=== PATIENT | female | born 1960 | race American Indian/Alaskan Native ===

== ENCOUNTER 2017-08-21 22:24 | Observation (INO) | payer MEDICARE, OTHER ==
--- NOTE | 2017-08-22 00:18 | ED PDOC ---
Syncope/Near Syncope/Dizziness <Robinson Jeter - Last Filed: 08/22/17 00:47> Chief Complaint (Provider): Near Syncope History Per: Patient History/Exam Limitations: no limitations Onset/Duration Of Symptoms: Days (x 1) Current Symptoms Are (Timing): Still Present Additional Complaint(s): 56 year old female with a medical history of HTN, DM, high cholesterol, CAD with 6 stents and obesity, presents to the ED complaining of near syncope, with associated generalized weakness. Patient reports she underwent gastric sleeve surgery on at [place] by Dr. Milner and while she was there she retained a lot of fluid. The fluid retention caused her left leg prosthesis to not fit. Because it did not fit, she never underwent any physical therapy for walking during her hospital stay. Patient was discharged today and was brought home via car by nephew. When she was trying to walk inside, she fell twice. First time she fell because her prosthesis did not fit and secondly, she felt light headed. She denies any loss of consciousness or head injury. PMd: Dr. eKrwin Neri MD <Yue Astorga - Last Filed: 08/24/17 16:42> Time Seen by Provider: 08/21/17 22:51 Chief Complaint (Nursing): Lower Extremity Problem/Injury Past Medical History Vital Signs: Last Vital Signs Temp 98.1 F 08/21/17 22:36 Pulse 78 08/21/17 22:36 Resp 16 08/21/17 22:36 BP 143/87 08/21/17 22:36 Pulse Ox 99 08/22/17 00:47 <Robinson Jeter - Last Filed: 08/22/17 00:47> Reviewed: Historical Data, Nursing Documentation, Vital Signs Vital Signs: Last Vital Signs Temp 98.1 F 08/21/17 22:36 Pulse 78 08/21/17 22:36 Resp 16 08/21/17 22:36 BP 143/87 08/21/17 22:36 Pulse Ox 99 08/21/17 22:36 - Medical History PMH: CAD, Diabetes, HTN, Hypercholesterolemia Other PMH: Obesity, 6 stents - Surgical History Other surgeries: right toe and left knee amputations, gastric sleeve and left eye - Family History Family History: States: CAD, Diabetes, Hypertension - Social History Ex-Smoker (has not smoked in the last 12 months): Yes Alcohol: None Drugs: Denies <Yue Astorga - Last Filed: 08/24/17 16:42> - Home Medications Home Medications: Ambulatory Orders Medication Instructions Recorded Aspirin [Ecotrin] 81 mg PO DAILY 08/22/17 Atorvastatin [Lipitor] 40 mg PO DAILY 08/22/17 Metoprolol Succinate [Toprol XL] 100 mg PO BID 08/22/17 Morphine Sulfate/Naltrexone 1 cap PO DAILY 08/22/17 [Embeda ER 50-2 mg Capsule] Mv,Min10/Folic Acid/D3/Ala/Lut 1 tab PO DAILY 08/22/17 [Strovite One Caplet] oxyCODONE/Acetaminophen [Percocet 1 tab PO Q6 PRN 08/22/17 5/325 mg Tab] Valsartan [Diovan] 80 mg PO DAILY tab 08/24/17 - Allergies Allergies/Adverse Reactions: Allergies Allergy/AdvReac Type Severity Reaction Status Date / Time No Known Allergies Allergy Verified 08/21/17 22:36 Review of Systems ROS Statement: Except As Marked, All Systems Reviewed And Found Negative (as per HPI otherwise negative) Neurological: Positive for: Other (near syncope) <Yue Astorga - Last Filed: 08/24/17 16:42> Physical Exam - Reviewed Nursing Documentation Reviewed: Yes Vital Signs Reviewed: Yes - Physical Exam Appears: Positive for: Non-toxic, In Acute Distress Head Exam: Positive for: ATRAUMATIC, NORMOCEPHALIC Skin: Positive for: Warm, Dry Eye Exam: Positive for: EOMI, PERRL ENT: Negative for: Pharyngeal Erythema, Tonsillar Exudate Neck: Positive for: Painless ROM, Supple Cardiovascular/Chest: Positive for: Regular Rate, Rhythm. Negative for: Murmur Respiratory: Positive for: Normal Breath Sounds. Negative for: Wheezing Gastrointestinal/Abdominal: Positive for: Other (Multiple incisions from recent laproscopic surgery. Wounds appear clean, dry and intact. ). Negative for: Tenderness Back: Positive for: Normal Inspection. Negative for: Decreased ROM Extremity: Positive for: Other (Pitting edema in right lower extremity. Poorly fititng prosthesis in place on lower left extremity) Lymphatic: Negative for: Adenopathy Neurologic/Psych: Positive for: Alert, Oriented (x 3) <Yue Astorga - Last Filed: 08/24/17 16:42> - Laboratory Results Result Diagrams: 08/22/17 01:10 08/22/17 01:10 - ECG O2 Sat by Pulse Oximetry: 99 (RA) Pulse Ox Interpretation: Normal <Yue Astorga - Last Filed: 08/24/17 16:42> Medical Decision Making Medical Decision Making: Time: 23:33 Impression: : near syncope Differential diagnoses include but are not limited to: deconditioning secondary to recent surgery electrolyte abnormality, anemia Initial Plan: --Blood type and screen --EKG --CMP --Magnesium --phosphorus --Troponin I --urien dip --CBC with differentials --PTT --Prothrombin time --Chest x-ray Scribe Attestation: Documented by Whitney Trujillo, acting as a scribe for Yue Astorga MD. Provider Scribe Attestation: All medical record entries made by the Scribe were at my direction and personally dictated by me. I have reviewed the chart and agree that the record accurately reflects my personal performance of the history, physical exam, medical decision making, and the department course for this patient. I have also personally directed, reviewed, and agree with the discharge instructions and disposition. <Yue Astorga - Last Filed: 08/24/17 16:42> Disposition <Robinson Jeter - Last Filed: 08/22/17 00:47> - Patient ED Disposition Is Patient to be Admitted: Transfer of Care - Disposition Disposition: Transfer of Care Disposition Time: 00:00 Patient Signed Over To: Robinson Jeter <Yue Astorga - Last Filed: 08/24/17 16:42> - Clinical Impression Clinical Impression: Recurrent falls, Near syncope - Disposition Condition: FAIR
--- NOTE | 2017-08-22 00:53 | ED PDOC ---
- Laboratory Results Result Diagrams: 08/22/17 01:10 08/22/17 01:10 - ECG O2 Sat by Pulse Oximetry: 99 (RA) Pulse Ox Interpretation: Normal Medical Decision Making Medical Decision Making: Time: 00:00 --Patient endorsed to me pending labs and reevaluation Time: --Labs reveal no clinically significant abnormalities --Given patient's history of multiple recurrent falls and gait instability in light of recent surgery place on observation status --Case referred to Dr. Neri, primary care provider. Scribe Attestation: Documented by Whitney Trujillo, acting as a scribe for Robinson Jeter MD. Provider Scribe Attestation: All medical record entries made by the Scribe were at my direction and personally dictated by me. I have reviewed the chart and agree that the record accurately reflects my personal performance of the history, physical exam, medical decision making, and the department course for this patient. I have also personally directed, reviewed, and agree with the discharge instructions and disposition. Disposition - Clinical Impression Clinical Impression: Recurrent falls, Near syncope - POA Present On Arrival: Falls Or Trauma - Disposition Disposition: Hospitalized as Observation Patient Disposition Time: : Condition: FAIR Patient Signed Over To: Kerwin Neri
[2017-08-22 01:39] LABS: BASO # 0.1 K/uL (0.0-0.2); BASO % 0.6 % (0.0-2.0); EOS # 0.3 K/uL (0.0-0.7); EOS % 2.9 % (0.0-4.0); HEMOGLOBIN 11.7 g/dL (12.0-16.0); LYMPH # 1.4 K/uL (1.0-4.3); LYMPH % 13.3 % (20.0-40.0); MEAN PLATELET VOLUME 7.7 fl (7.2-11.7); MONO # 0.7 K/uL (0.0-0.8); MONO % 6.5 % (0.0-10.0); NEUT % 76.7 % (50.0-75.0); RBC 4.88 Mil/uL (3.80-5.20); RED CELL DISTRIBUTION WIDTH 18.7 % (11.5-14.5); WHITE BLOOD COUNT 10.5 K/uL (4.8-10.8)
[2017-08-22 01:49] LABS: ALB/GLOB RATIO 0.9 (1.0-2.1); ALBUMIN 3.5 g/dL (3.5-5.0); MAGNESIUM 2.2 MG/DL (1.6-2.3)
[2017-08-22 01:58] LABS: INR 1.1 (0.9-1.2); PARTIAL THROMBOPLASTIN TIME 34.9 Seconds (25.6-37.1); PROTHROMBIN TIME 11.8 Seconds (9.8-13.1)
[2017-08-22 01:59] LABS: TROPONIN I 0.018 ng/mL (0.00-0.120)
[2017-08-22] MEDS: Multivitamin With Minerals Tab PO SCH (09:21)
--- NOTE | 2017-08-22 09:23 | RAD ---
HISTORY: near syncope COMPARISON: 08/07/2013 FINDINGS: LUNGS: No dense consolidation. Lung volumes are shallow central pulmonary vasculature is accentuated - likely in part due to this as well as large body habitus. Overall appearance is similar PLEURA: No significant pleural effusion identified, no pneumothorax apparent. CARDIOVASCULAR: Cardiomegaly as beforeLung volumes are shallow central pulmonary vasculature is accentuated - likely in part due to this as well as large body habitus. Overall appearance is similar OSSEOUS STRUCTURES: Bilateral shoulder arthrosis. Thoracic spondylosis VISUALIZED UPPER ABDOMEN: Normal. OTHER FINDINGS: None. IMPRESSION: No interval pathology noted
--- NOTE | 2017-08-22 11:18 | CP.PCM.HP ---
History of Present Illness - History of Present Illness History of Present Illness: 56 y/o F with PMHx of HTN, DM, HLP, CAD, AKA R/LE, stents and obesity, presented to ED Yesterday c/o falls, with associated generalized weakness. Patient reports she underwent gastric bypass Sx last at [place] and while she was there she retained a lot of fluid because she states she was aggressively hydrated. The fluid retention caused her left leg prosthesis to not fit well and because of this, she was not able to receive any PT for walking during her hospital stay. At home, When she was trying to walk inside, she fell twice. First time she fell because her prosthesis did not fit and secondly, she felt light headed. She denies any loss of consciousness or head injury. Today patient is in not acute distress, still c/o B/L LE swelling and some pain as well. Denies CP, SOB, palpitations. Present on Admission - Present on Admission Any Indicators Present on Admission: No Review of Systems - Review of Systems All systems: reviewed and no additional remarkable complaints except Review of Systems: As per HPI Past Patient History - Past Medical History & Family History Past Medical History?: Yes - Past Social History Smoking Status: Former Smoker - CARDIAC Hx Cardiac Disorders: Yes Hx Hypercholesterolemia: Yes Hx Hypertension: Yes - PULMONARY Hx Respiratory Disorders: No - NEUROLOGICAL Hx Neurological Disorder: No - HEENT Hx HEENT Problems: No - RENAL Hx Chronic Kidney Disease: No - ENDOCRINE/METABOLIC Hx Endocrine Disorders: Yes Hx Diabetes Mellitus Type 2: Yes - HEMATOLOGICAL/ONCOLOGICAL Hx Blood Disorders: No - INTEGUMENTARY Hx Dermatological Problems: No - MUSCULOSKELETAL/RHEUMATOLOGICAL Hx Musculoskeletal Disorders: No Hx Falls: Yes - GASTROINTESTINAL Hx Gastrointestinal Disorders: No - GENITOURINARY/GYNECOLOGICAL Hx Genitourinary Disorders: No - PSYCHIATRIC Hx Psychophysiologic Disorder: No Hx Substance Use: No - SURGICAL HISTORY Hx Surgeries: Yes Hx Amputation: Yes (left bka & right big toe) Hx Cardiac Catheterization: Yes (6 stents) Other/Comment: left BKA 2013. gastric sleeve - ANESTHESIA Hx Anesthesia: Yes Hx Anesthesia Reactions: No Meds Allergies/Adverse Reactions: Allergies Allergy/AdvReac Type Severity Reaction Status Date / Time No Known Allergies Allergy Verified 08/21/17 22:36 Physical Exam - Constitutional Appears: Non-toxic, Chronically Ill Additional comments: Obese - Eye Exam Eye Exam: EOMI, PERRL - ENT Exam ENT Exam: Mucous Membranes Moist - Respiratory Exam Respiratory Exam: Clear to Auscultation Bilateral, NORMAL BREATHING PATTERN. absent: Rales - Cardiovascular Exam Cardiovascular Exam: REGULAR RHYTHM, +S1, +S2. absent: Gallop - GI/Abdominal Exam GI & Abdominal Exam: Normal Bowel Sounds, Soft, Tenderness (Diffuse, worse around Sx incision areas). absent: Guarding, Rebound - Extremities Exam Extremities exam: Positive for: pedal edema Additional comments: AKA L/LE. - Neurological Exam Neurological exam: Alert, Oriented x3 - Psychiatric Exam Psychiatric exam: Normal Affect, Normal Mood - Skin Skin Exam: Normal Color, Warm Results - Vital Signs Recent Vital Signs: Last Vital Signs Temp 97.6 F 08/22/17 08:00 Pulse 67 08/22/17 09:00 Resp 20 08/22/17 08:00 BP 163/79 H 08/22/17 08:00 Pulse Ox 98 08/22/17 08:00 - Labs Result Diagrams: 08/22/17 01:10 08/22/17 01:10 Labs: Laboratory Results - last 24 hr 08/22/17 08/22/17 08/22/17 00:02 01:10 01:10 WBC 10.5 RBC 4.88 Hgb 11.7 L Hct 36.6 MCV 75.0 L MCH 24.0 L MCHC 32.0 L RDW 18.7 H Plt Count 362 MPV 7.7 Neut % (Auto) 76.7 H Lymph % (Auto) 13.3 L Glynn % (Auto) 6.5 Eos % (Auto) 2.9 Baso % (Auto) 0.6 Neut # (Auto) 8.0 H Lymph # (Auto) 1.4 Glynn # (Auto) 0.7 Eos # (Auto) 0.3 Baso # (Auto) 0.1 PT INR APTT Sodium 141 Potassium 4.1 Chloride 107 Carbon Dioxide 22 Anion Gap 16 BUN 16 Creatinine 1.2 Est GFR ( Amer) 57 Est GFR (Non-Af Amer) 47 POC Glucose (mg/dL) 111 H Random Glucose 123 H Calcium 9.0 Phosphorus 2.5 Magnesium 2.2 Total Bilirubin 0.5 AST 29 ALT 26 Alkaline Phosphatase 66 Troponin I 0.0180 Total Protein 7.2 Albumin 3.5 Globulin 3.7 Albumin/Globulin Ratio 0.9 L Blood Type Antibody Screen BBK History Checked 08/22/17 08/22/17 08/22/17 01:10 01:10 05:24 WBC RBC Hgb Hct MCV MCH MCHC RDW Plt Count MPV Neut % (Auto) Lymph % (Auto) Glynn % (Auto) Eos % (Auto) Baso % (Auto) Neut # (Auto) Lymph # (Auto) Glynn # (Auto) Eos # (Auto) Baso # (Auto) PT 11.8 INR 1.1 APTT 34.9 Sodium Potassium Chloride Carbon Dioxide Anion Gap BUN Creatinine Est GFR ( Amer) Est GFR (Non-Af Amer) POC Glucose (mg/dL) 120 H Random Glucose Calcium Phosphorus Magnesium Total Bilirubin AST ALT Alkaline Phosphatase Troponin I Total Protein Albumin Globulin Albumin/Globulin Ratio Blood Type AB POSITIVE Antibody Screen Negative BBK History Checked Patient has bt Assessment & Plan - Assessment and Plan (Free Text) Assessment: Fall Likely mechanical due to prosthetic/swelling of LE CMP WNL CBC mild anemia EKG no acute changes B/L LE swelling R/O DVT Poss due to fluid overload F/U LE US DVT prophylaxis S/P Gastric bypass Sx [facility] referral PT/OT eval Transfer to Med-Sx Hx of CAD Asymptomatic C/W Current meds Anemia Unspecified IRon studies VIT B12/Folate
--- NOTE | 2017-08-22 11:40 | CARD ---
APPROVED REPORT EKG Measurement Heart [id number] <Conclusion> Normal sinus rhythm Cannot rule out Anterior infarct, age undetermined Abnormal ECG
[2017-08-22] MEDS: Metoprolol Succinate 100 mg XL Tab PO SCH ×2 (14:08→16:00)
--- NOTE | 2017-08-22 14:38 | US ---
PROCEDURE: Bilateral lower extremity venous duplex Doppler. HISTORY: leg edema COMPARISON: None available. TECHNIQUE: Bilateral common femoral, superficial femoral, popliteal and posterior tibial veins were evaluated. Flow was assessed with color Doppler, compressibility, assessment of phasic flow and augmentation response. FINDINGS: COMMON FEMORAL VEIN: Right CFV: Unremarkable. Left CFV: Unremarkable. SUPERFICIAL FEMORAL VEIN: Right SFV: Unremarkable. Left SFV: Unremarkable. POPLITEAL VEIN: Right Popliteal: Unremarkable. Left Popliteal: Unremarkable. POSTERIOR TIBIAL VEIN: Right PTV: Unremarkable. Left PTV: Status post below knee amputation OTHER FINDINGS: None. IMPRESSION: No evidence of deep venous thrombosis.
[2017-08-22 21:05] LABS: FOLATE > 20.0 ng/mL
[2017-08-23] MEDS: Multivitamin With Minerals Tab PO SCH (08:46)
[2017-08-23] MEDS: Metoprolol Succinate 100 mg XL Tab PO SCH ×2 (08:46→17:23)
[2017-08-23] MEDS: Enoxaparin 40 mg Syringe SC SCH (08:46)
[2017-08-23] MEDS: Oxycodone/Acetaminophen 5/325 mg Tab PO PRN ×2 (08:53→14:11)
--- NOTE | 2017-08-23 13:43 | CP.PCM.PN ---
Subjective - Date & Time of Evaluation Date of Evaluation: 08/23/17 Time of Evaluation: 10:45 - Subjective Subjective: Doing better, no acute events overnight. Stable. Lying in bed in not acute distress. Denies CP, SOB, palpitations. Afebrile Objective - Vital Signs/Intake and Output Vital Signs (last 24 hours): Temp Pulse Resp BP Pulse Ox 98.4 F 73 18 148/79 99 08/23/17 09:00 08/23/17 09:00 08/23/17 09:00 08/23/17 09:00 08/23/17 09:00 - Medications Medications: Current Medications Aspirin (Ecotrin) 81 mg PO DAILY [facility] Last Admin: 08/23/17 08:46 Dose: 81 mg Atorvastatin Calcium (Lipitor) 40 mg PO DAILY [facility] Last Admin: 08/23/17 08:46 Dose: 40 mg Enoxaparin Sodium (Lovenox) 40 mg SC DAILY [facility] PRN Reason: Protocol Last Admin: 08/23/17 08:46 Dose: 40 mg Metoprolol Succinate (Toprol Xl) 100 mg PO BID [facility] Last Admin: 08/23/17 08:46 Dose: 100 mg Morphine Sulfate (Morphine) 2 mg IVP Q6 PRN PRN Reason: Pain, moderate (4-7) Last Admin: 08/23/17 11:36 Dose: 2 mg Multivitamins/Minerals (Therapeutic-M Tab) 1 tab PO DAILY [facility] Last Admin: 08/23/17 08:46 Dose: 1 tab Oxycodone/Acetaminophen (Percocet 5/325 Mg Tab) 1 tab PO Q6 PRN PRN Reason: Pain, moderate (4-7) Stop: 08/25/17 06:44 Last Admin: 08/23/17 08:53 Dose: 1 tab Valsartan (Diovan) 80 mg PO DAILY [facility] Last Admin: 08/23/17 08:46 Dose: 80 mg - Labs Labs: 08/22/17 01:10 08/22/17 01:10 PT 11.8 Seconds (9.8-13.1) 08/22/17 01:10 INR 1.1 (0.9-1.2) 08/22/17 01:10 APTT 34.9 Seconds (25.6-37.1) 08/22/17 01:10 - Constitutional Appears: Non-toxic, No Acute Distress - Head Exam Head Exam: NORMAL INSPECTION - Eye Exam Eye Exam: EOMI, PERRL - ENT Exam ENT Exam: Mucous Membranes Moist - Respiratory Exam Respiratory Exam: Clear to Ausculation Bilateral, NORMAL BREATHING PATTERN. absent: Rales - Cardiovascular Exam Cardiovascular Exam: REGULAR RHYTHM, +S1, +S2. absent: Gallop - GI/Abdominal Exam GI & Abdominal Exam: Soft, Tenderness (MIld). absent: Guarding, Rigid, Rebound - Extremities Exam Extremities Exam: Pedal Edema. absent: Calf Tenderness, Normal Inspection ( Left leg amputations status) - Neurological Exam Neurological Exam: Alert, Awake, Oriented x3 - Psychiatric Exam Psychiatric exam: Normal Affect, Normal Mood - Skin Skin Exam: Normal Color, Warm Assessment and Plan - Assessment and Plan (Free Text) Plan: Unsteady gait likely due to leg swelling after fluid overload Improving LE US no DVT Pain improved PT eval
[2017-08-24 08:14] VITALS: BP 131/74; PULSE 75; RESP 19; TEMP 98.1
[2017-08-24] MEDS: Enoxaparin 40 mg Syringe SC SCH (08:46)
[2017-08-24] MEDS: Metoprolol Succinate 100 mg XL Tab PO SCH (08:46)
[2017-08-24] MEDS: Multivitamin With Minerals Tab PO SCH (08:46)
--- NOTE | 2017-08-24 12:31 | CP.PCM.DIS ---
Provider - Provider Date of Admission: 08/22/17 02:31 Attending physician: Kerwin Neri MD Time Spent in preparation of Discharge (in minutes): 30 Diagnosis - Discharge Diagnosis (1) Unsteady gait Status: Acute Comment: Likely due to acute LE edema due to fluid overload. (2) Status post gastric bypass for obesity Status: Acute Comment: Stable (3) Amputation status of lower extremity Status: Chronic Comment: Needs PT. Hospital Course - Lab Results Lab Results: Most Recent Lab Values WBC 10.5 K/uL (4.8-10.8) 08/22/17 01:10 RBC 4.88 Mil/uL (3.80-5.20) 08/22/17 01:10 Hgb 11.7 g/dL (12.0-16.0) L 08/22/17 01:10 Hct 36.6 % (34.0-47.0) 08/22/17 01:10 MCV 75.0 fl (81.0-99.0) L 08/22/17 01:10 MCH 24.0 pg (27.0-31.0) L 08/22/17 01:10 MCHC 32.0 g/dL (33.0-37.0) L 08/22/17 01:10 RDW 18.7 % (11.5-14.5) H 08/22/17 01:10 Plt Count 362 K/uL (130-400) 08/22/17 01:10 MPV 7.7 fl (7.2-11.7) 08/22/17 01:10 Neut % (Auto) 76.7 % (50.0-75.0) H 08/22/17 01:10 Lymph % (Auto) 13.3 % (20.0-40.0) L 08/22/17 01:10 Traill % (Auto) 6.5 % (0.0-10.0) 08/22/17 01:10 Eos % (Auto) 2.9 % (0.0-4.0) 08/22/17 01:10 Baso % (Auto) 0.6 % (0.0-2.0) 08/22/17 01:10 Neut # (Auto) 8.0 K/uL (1.8-7.0) H 08/22/17 01:10 Lymph # (Auto) 1.4 K/uL (1.0-4.3) 08/22/17 01:10 Traill # (Auto) 0.7 K/uL (0.0-0.8) 08/22/17 01:10 Eos # (Auto) 0.3 K/uL (0.0-0.7) 08/22/17 01:10 Baso # (Auto) 0.1 K/uL (0.0-0.2) 08/22/17 01:10 PT 11.8 Seconds (9.8-13.1) 08/22/17 01:10 INR 1.1 (0.9-1.2) 08/22/17 01:10 APTT 34.9 Seconds (25.6-37.1) 08/22/17 01:10 Sodium 141 mmol/l (132-148) 08/22/17 01:10 Potassium 4.1 MMOL/L (3.6-5.0) 08/22/17 01:10 Chloride 107 mmol/L (98-107) 08/22/17 01:10 Carbon Dioxide 22 mmol/L (22-30) 08/22/17 01:10 Anion Gap 16 (10-20) 08/22/17 01:10 BUN 16 mg/dl (7-17) 08/22/17 01:10 Creatinine 1.2 mg/dl (0.7-1.2) 08/22/17 01:10 Est GFR ( Amer) 57 08/22/17 01:10 Est GFR (Non-Af Amer) 47 08/22/17 01:10 POC Glucose (mg/dL) 175 mg/dL (65-110) H 08/24/17 10:34 Random Glucose 123 mg/dL (65-105) H 08/22/17 01:10 Calcium 9.0 mg/dL (8.4-10.2) 08/22/17 01:10 Phosphorus 2.5 mg/dl (2.5-4.5) 08/22/17 01:10 Magnesium 2.2 MG/DL (1.6-2.3) 08/22/17 01:10 Ferritin 173.0 ng/Ml (11.1-264.0) 08/22/17 14:47 Total Bilirubin 0.5 mg/dl (0.2-1.3) 08/22/17 01:10 AST 29 U/L (14-36) 08/22/17 01:10 ALT 26 U/L (9-52) 08/22/17 01:10 Alkaline Phosphatase 66 U/L (38-126) 08/22/17 01:10 Troponin I 0.0180 ng/mL (0.00-0.120) 08/22/17 01:10 Total Protein 7.2 G/DL (6.3-8.2) 08/22/17 01:10 Albumin 3.5 g/dL (3.5-5.0) 08/22/17 01:10 Globulin 3.7 gm/dL (2.2-3.9) 08/22/17 01:10 Albumin/Globulin Ratio 0.9 (1.0-2.1) L 08/22/17 01:10 Vitamin B12 992 pg/mL (239-931) H 08/22/17 14:47 Folate > 20.0 ng/mL 08/22/17 14:47 Blood Type AB POSITIVE 08/22/17 01:10 Antibody Screen Negative 08/22/17 01:10 BBK History Checked Patient has bt 08/22/17 01:10 - Hospital Course Hospital Course: 56 y/o F with PMhx of obesity, AARON was admitted to hosp for unsteadiness/falls due to LE edema and prosthesis malfunctioning after DC from [facility] s/p gastric bypass. Patient remained stable during hosp stay. LE US ruled out DVT and LE edema improved. Patient is cleared to be transferred to TCU unit today for physical therapy Discharge Exam - Head Exam Head Exam: NORMAL INSPECTION - Eye Exam Eye Exam: EOMI, PERRL - ENT Exam ENT Exam: Mucous Membranes Moist - Respiratory Exam Respiratory Exam: Clear to PA & Lateral, NORMAL BREATHING PATTERN, UNREMARKABLE. absent: Wheezes - Cardiovascular Exam Cardiovascular Exam: REGULAR RHYTHM, +S1, +S2. absent: Gallop - GI/Abdominal Exam GI & Abdominal Exam: Normal Bowel Sounds, Soft, Tenderness (Mild, periumbilical/ epigastric). absent: Distended, Rigid - Extremities Exam Additional comments: Amputation status L/leg - Neurological Exam Neurological exam: Alert, Oriented x3 - Psychiatric Exam Psychiatric exam: Normal Affect, Normal Mood - Skin Skin Exam: Normal Color, Warm Discharge Plan - Follow Up Plan Condition: STABLE Disposition: REHAB FACILITY/REHAB UNIT Instructions: Preventing Falls, Near Fainting (DC) Referrals: Kerwin Neri MD [Family Provider] -
[2017-08-24 16:42] VITALS: O2SAT 99
[2017-08-25] MEDS ORDERED: Pantoprazole 40 mg EC Tab PO SCH (09:00)
== END 2017-08-24 16:05 ==
LOC: H.ER 22:24 → H.ERHOLD 08-22 02:31 → H.TEL 08-22 04:57 → H.MEDSURG1 08-23 00:18
PROVIDERS: ADMIT Family Medicine; ATTEND Family Medicine
DX: R26.81 Unsteadiness on feet (principal); E66.9 Obesity, unspecified; Z68.42 Body mass index [BMI] 45.0-49.9, adult; I10 Essential (primary) hypertension; E11.9 Type 2 diabetes mellitus without complications; E78.00 Pure hypercholesterolemia, unspecified; I25.10 Atherosclerotic heart disease of native coronary artery without angina pectoris; Z98.84 Bariatric surgery status; Z95.5 Presence of coronary angioplasty implant and graft; Z87.891 Personal history of nicotine dependence; E78.5 Hyperlipidemia, unspecified; D64.9 Anemia, unspecified; Z89.512 Acquired absence of left leg below knee; R29.6 Repeated falls
CPT/HCPCS: 71045; 80053; 82607; 82728; 82746; 82948; 83735; 84100; 84484; 85025; 85610; 85730; 86850; 86900; 93005; 93970; 97116; 97162; 97166; 97530; 99284; G0378; G8978; G8979; G8987; G8988; J1650; J1885; J2270; J2405

== ENCOUNTER 2017-08-24 15:23 | Inpatient (IN) | payer MEDICARE, OTHER ==
[2017-08-24 16:23] VITALS: BMI 54.1
[2017-08-24] MEDS ORDERED: Simethicone 40 mg/0.6 ml Liquid (30 ml) PO PRN (16:33)
[2017-08-24] MEDS: Oxycodone/Acetaminophen 5/325 mg Tab PO PRN (19:36)
[2017-08-24] MEDS: Metoprolol Succinate 100 mg XL Tab PO SCH (20:22)
[2017-08-25] MEDS: Metoprolol Succinate 100 mg XL Tab PO SCH ×2 (08:29→16:14)
[2017-08-25] MEDS: Oxycodone/Acetaminophen 5/325 mg Tab PO PRN (08:39)
[2017-08-25] MEDS ORDERED: Multivitamin With Minerals Tab PO SCH (09:00)
[2017-08-25] MEDS ORDERED: NALTREXONE PO SCH (09:00)
[2017-08-25] MEDS ORDERED: MORPHINE SULFATE PO SCH (09:00)
[2017-08-25 16:43] VITALS: RESP 20
[2017-08-26] MEDS: Oxycodone/Acetaminophen 5/325 mg Tab PO PRN ×2 (02:58→22:06)
[2017-08-26] MEDS: Metoprolol Succinate 100 mg XL Tab PO SCH ×2 (08:51→17:19)
[2017-08-26] MEDS: [UNRECOGNIZED DRUG - OTHER] PO SCH (08:51)
--- NOTE | 2017-08-27 00:16 | CP.PCM.HP ---
History of Present Illness - History of Present Illness History of Present Illness: This is a 56 y/o female admitted for further phys therapy. She was admitted to medical floor after having episodes of fall after a sleeve procedure .Her prosthesis was not well fitted and had difficulty with gait and balance. She also complained of vague epigastric pain on and off since after the gastric procedure. Has a hx of HTN DM 2 and obesity. Present on Admission - Present on Admission Any Indicators Present on Admission: No History of DVT/PE: No History of Uncontrolled Diabetes: No Urinary Catheter: No Decubitus Ulcer Present: No Review of Systems - Constitutional Constitutional: Frequent Falls, Increased Appetite, Weight Gain Past Patient History - Past Medical History & Family History Past Medical History?: Yes - Past Social History Smoking Status: Never Smoked - CARDIAC Hx Hypertension: Yes - PULMONARY Hx Respiratory Disorders: No - NEUROLOGICAL Hx Neurological Disorder: No - HEENT Hx HEENT Problems: No - RENAL Hx Chronic Kidney Disease: No - ENDOCRINE/METABOLIC Hx Diabetes Mellitus Type 2: Yes - HEMATOLOGICAL/ONCOLOGICAL Hx Blood Disorders: No - INTEGUMENTARY Hx Dermatological Problems: No - MUSCULOSKELETAL/RHEUMATOLOGICAL Hx Musculoskeletal Disorders: No Hx Falls: Yes - GASTROINTESTINAL Hx Gastrointestinal Disorders: No - GENITOURINARY/GYNECOLOGICAL Hx Genitourinary Disorders: No - PSYCHIATRIC Hx Psychophysiologic Disorder: No Hx Substance Use: No - SURGICAL HISTORY Hx Surgeries: Yes Hx Amputation: Yes (left bka & right big toe) Hx Cardiac Catheterization: Yes (6 stents) Other/Comment: left BKA 2013. gastric sleeve - ANESTHESIA Hx Anesthesia: Yes Hx Anesthesia Reactions: No Meds Allergies/Adverse Reactions: Allergies Allergy/AdvReac Type Severity Reaction Status Date / Time No Known Allergies Allergy Verified 08/21/17 22:36 Physical Exam - Head Exam Head Exam: NORMAL INSPECTION - Eye Exam Eye Exam: Normal appearance - ENT Exam ENT Exam: Mucous Membranes Moist - Respiratory Exam Respiratory Exam: Clear to Auscultation Bilateral - Cardiovascular Exam Cardiovascular Exam: REGULAR RHYTHM - GI/Abdominal Exam GI & Abdominal Exam: Normal Bowel Sounds Additional comments: slight oozing on the surgical wound. - Neurological Exam Neurological exam: CN II-XII Intact, Oriented x3 Results - Vital Signs Recent Vital Signs: Last Vital Signs Temp 97.0 F L 08/26/17 21:32 Pulse 58 L 08/26/17 21:32 Resp 20 08/26/17 21:32 BP 165/76 H 08/26/17 21:32 Pulse Ox 97 08/26/17 21:32 - Labs Labs: Laboratory Results - last 24 hr 08/26/17 08/26/17 08/26/17 05:33 16:14 20:57 POC Glucose (mg/dL) 79 127 H 123 H Assessment & Plan (1) Recurrent falls Status: Acute (2) Gait difficulty Status: Acute (3) Morbid obesity Status: Acute (4) Diabetes mellitus type 2 in obese Status: Acute - Assessment and Plan (Free Text) Plan: start PT cont accucheck advised clear liquids for now. Cont meds
[2017-08-27] MEDS: Metoprolol Succinate 100 mg XL Tab PO SCH ×2 (08:24→17:34)
[2017-08-27] MEDS: [UNRECOGNIZED DRUG - OTHER] PO SCH (08:24)
[2017-08-27] MEDS: Oxycodone/Acetaminophen 5/325 mg Tab PO PRN (17:53)
--- NOTE | 2017-08-28 07:24 | CP.PCM.PN ---
Subjective - Date & Time of Evaluation Date of Evaluation: 08/27/17 Time of Evaluation: 10:45 - Subjective Subjective: Patient is doing well with PT Noted slight bleeding on surgical wound Has less abd pain tolerating PT well. Noted that prosthesis is now fully fitted. Objective - Vital Signs/Intake and Output Vital Signs (last 24 hours): Temp Pulse Resp BP Pulse Ox 97.9 F 61 20 140/75 98 08/27/17 20:07 08/27/17 20:07 08/27/17 20:07 08/27/17 20:07 08/27/17 20:07 - Medications Medications: Current Medications Aspirin (Ecotrin) 81 mg PO DAILY [facility] Last Admin: 08/27/17 08:24 Dose: 81 mg Atorvastatin Calcium (Lipitor) 40 mg PO DAILY [facility] Last Admin: 08/27/17 08:24 Dose: 40 mg Docusate Sodium (Colace) 100 mg PO BID [facility] Last Admin: 08/27/17 17:34 Dose: 100 mg Home Med (Patient's Own Medication) 1 unit PO DAILY [facility] Last Admin: 08/27/17 08:24 Dose: 1 unit Metoprolol Succinate (Toprol Xl) 100 mg PO BID [facility] Last Admin: 08/27/17 17:34 Dose: 100 mg Ondansetron HCl (Zofran Inj) 4 mg IVP Q4 PRN PRN Reason: Nausea/Vomiting Last Admin: 08/25/17 17:41 Dose: 4 mg Ondansetron HCl (Zofran Tab) 4 mg PO Q4 PRN PRN Reason: Nausea/Vomiting Oxycodone/Acetaminophen (Percocet 5/325 Mg Tab) 1 tab PO Q6 PRN PRN Reason: Pain, moderate (4-7) Stop: 08/30/17 17:34 Last Admin: 08/27/17 17:53 Dose: 1 tab Pregabalin (Lyrica) 100 mg PO Q12 [facility] Last Admin: 08/27/17 20:56 Dose: 100 mg Simethicone (Mylicon Liq) 40 mg PO QID PRN PRN Reason: Flatulence Ticagrelor (Brilinta) 90 mg PO BID [facility] Last Admin: 08/27/17 17:35 Dose: 90 mg Valsartan (Diovan) 80 mg PO DAILY [facility] Last Admin: 03/05/18 08:24 Dose: 80 mg - Head Exam Head Exam: NORMAL INSPECTION - Eye Exam Eye Exam: Normal appearance - Respiratory Exam Respiratory Exam: Clear to Ausculation Bilateral - Cardiovascular Exam Cardiovascular Exam: REGULAR RHYTHM - GI/Abdominal Exam GI & Abdominal Exam: Normal Bowel Sounds Additional comments: slight oozing on surgical wound - Neurological Exam Neurological Exam: CN II-XII Intact, Oriented x3 Assessment and Plan (1) Gait difficulty Status: Acute (2) Diabetes mellitus type 2 in obese Status: Acute (3) Morbid obesity Status: Acute (4) Near syncope Status: Acute (5) Status post gastric bypass for obesity Status: Acute (6) Unsteady gait Status: Acute (7) Amputation status of lower extremity Status: Chronic - Assessment and Plan (Free Text) Plan: Cont meds Cont tx Cont PT pain memds protonix wound dressing
[2017-08-28] MEDS: Metoprolol Succinate 100 mg XL Tab PO SCH ×2 (09:25→16:37)
[2017-08-28] MEDS: [UNRECOGNIZED DRUG - OTHER] PO SCH (09:26)
[2017-08-28] MEDS: Oxycodone/Acetaminophen 5/325 mg Tab PO PRN ×2 (12:39→22:41)
--- NOTE | 2017-08-28 12:52 | CP.PCM.PN ---
<Edmund Yi - Last Filed: 08/28/17 12:50> Subjective - Date & Time of Evaluation Date of Evaluation: 08/28/17 Time of Evaluation: 10:20 - Subjective Subjective: Stable, no acute distress, no event overnight. Feeling better. Afebrile. Objective - Vital Signs/Intake and Output Vital Signs (last 24 hours): Temp Pulse Resp BP Pulse Ox 98.2 F 69 20 130/56 L 98 08/28/17 08:57 08/28/17 09:25 08/28/17 08:57 08/28/17 09:25 08/28/17 08:57 - Medications Medications: Current Medications Acetaminophen (Tylenol 325mg Tab) 650 mg PO Q6 PRN PRN Reason: Pain, Mild (1-3) Aspirin (Ecotrin) 81 mg PO DAILY [facility] Last Admin: 08/28/17 09:25 Dose: 81 mg Atorvastatin Calcium (Lipitor) 40 mg PO DAILY [facility] Last Admin: 08/28/17 09:25 Dose: 40 mg Docusate Sodium (Colace) 100 mg PO BID [facility] Last Admin: 08/28/17 09:25 Dose: Not Given Home Med (Patient's Own Medication) 1 unit PO DAILY [facility] Last Admin: 08/28/17 09:26 Dose: 1 unit Metoprolol Succinate (Toprol Xl) 100 mg PO BID [facility] Last Admin: 08/28/17 09:25 Dose: 100 mg Ondansetron HCl (Zofran Inj) 4 mg IVP Q4 PRN PRN Reason: Nausea/Vomiting Last Admin: 08/25/17 17:41 Dose: 4 mg Ondansetron HCl (Zofran Tab) 4 mg PO Q4 PRN PRN Reason: Nausea/Vomiting Oxycodone/Acetaminophen (Percocet 5/325 Mg Tab) 1 tab PO Q6 PRN PRN Reason: Pain, moderate (4-7) Stop: 08/30/17 17:34 Last Admin: 08/28/17 12:39 Dose: 1 tab Pregabalin (Lyrica) 100 mg PO Q12 [facility] Last Admin: 08/28/17 09:25 Dose: 100 mg Simethicone (Mylicon Liq) 40 mg PO QID PRN PRN Reason: Flatulence Ticagrelor (Brilinta) 90 mg PO BID [facility] Last Admin: 08/28/17 09:26 Dose: 90 mg Valsartan (Diovan) 80 mg PO DAILY [facility] Last Admin: 08/28/17 09:25 Dose: 80 mg - Constitutional Appears: Non-toxic, No Acute Distress - Eye Exam Eye Exam: EOMI, PERRL - ENT Exam ENT Exam: Mucous Membranes Moist - Respiratory Exam Respiratory Exam: Clear to Ausculation Bilateral, NORMAL BREATHING PATTERN - Cardiovascular Exam Cardiovascular Exam: REGULAR RHYTHM, +S1, +S2. absent: Gallop - GI/Abdominal Exam GI & Abdominal Exam: Soft, Normal Bowel Sounds. absent: Tenderness - Extremities Exam Extremities Exam: absent: Normal Inspection (amputation status. No acute changes ) - Neurological Exam Neurological Exam: Alert, Awake, Oriented x3 - Psychiatric Exam Psychiatric exam: Normal Affect, Normal Mood - Skin Skin Exam: Normal Color, Warm Assessment and Plan - Assessment and Plan (Free Text) Assessment: S/p gastric bypass and fluid overload Admitted for unsteadiness likely due to LE edema/mechanical prostetic difficulty walking No DVT C/W PT <Kerwin Neri - Last Filed: 09/04/17 05:55> Objective - Vital Signs/Intake and Output Vital Signs (last 24 hours): Temp Pulse Resp BP Pulse Ox 97.5 F L 68 20 111/52 L 98 09/02/17 08:23 09/02/17 08:25 09/02/17 08:23 09/02/17 08:25 09/02/17 08:23 Assessment and Plan (1) Unsteady gait Status: Acute (2) Diabetes mellitus type 2 in obese Status: Acute (3) Gait difficulty Status: Acute (4) Morbid obesity Status: Acute (5) Recurrent falls Status: Acute (6) Status post gastric bypass for obesity Status: Acute - Assessment and Plan (Free Text) Plan: I was present during evaluation and discussed with Dr Kd gonsalves plans of care and treatment. Kerwin Neri M.D.
[2017-08-29] MEDS: Oxycodone/Acetaminophen 5/325 mg Tab PO PRN ×3 (04:50→23:22)
[2017-08-29] MEDS: [UNRECOGNIZED DRUG - OTHER] PO SCH (09:07)
[2017-08-29] MEDS: Metoprolol Succinate 100 mg XL Tab PO SCH ×2 (09:07→17:04)
--- NOTE | 2017-08-29 10:48 | CP.PCM.PN ---
<Edmund Yi - Last Filed: 08/29/17 13:17> Subjective - Date & Time of Evaluation Date of Evaluation: 08/29/17 Time of Evaluation: 11:45 - Subjective Subjective: No acute distress, no event overnight, gait improved with PT as per patient not 100 % yet. No changes in urination or stools. Tolerating PO liquid diet. Still c /o mild abd pain near Sx incision areas from recent gastric bp sx Objective - Vital Signs/Intake and Output Vital Signs (last 24 hours): Temp Pulse Resp BP Pulse Ox 98.1 F 82 20 137/63 99 08/29/17 08:27 08/29/17 09:07 08/29/17 08:27 08/29/17 09:07 08/29/17 08:27 - Medications Medications: Current Medications Acetaminophen (Tylenol 325mg Tab) 650 mg PO Q6 PRN PRN Reason: Pain, Mild (1-3) Aspirin (Ecotrin) 81 mg PO DAILY [facility] Last Admin: 08/29/17 09:07 Dose: 81 mg Atorvastatin Calcium (Lipitor) 40 mg PO DAILY@2100 [facility] Docusate Sodium (Colace) 100 mg PO BID [facility] Last Admin: 08/29/17 08:49 Dose: Not Given Home Med (Patient's Own Medication) 1 unit PO DAILY [facility] Last Admin: 08/29/17 09:07 Dose: 1 unit Metoprolol Succinate (Toprol Xl) 100 mg PO BID [facility] Last Admin: 08/29/17 09:07 Dose: 100 mg Ondansetron HCl (Zofran Inj) 4 mg IVP Q4 PRN PRN Reason: Nausea/Vomiting Last Admin: 08/25/17 17:41 Dose: 4 mg Ondansetron HCl (Zofran Tab) 4 mg PO Q4 PRN PRN Reason: Nausea/Vomiting Last Admin: 08/28/17 16:37 Dose: 4 mg Oxycodone/Acetaminophen (Percocet 5/325 Mg Tab) 1 tab PO Q6 PRN PRN Reason: Pain, moderate (4-7) Stop: 08/30/17 17:34 Last Admin: 08/29/17 04:50 Dose: 1 tab Pregabalin (Lyrica) 100 mg PO Q12 [facility] Last Admin: 08/29/17 09:06 Dose: 100 mg Simethicone (Mylicon Liq) 40 mg PO QID PRN PRN Reason: Flatulence Ticagrelor (Brilinta) 90 mg PO BID [facility] Last Admin: 08/29/17 09:07 Dose: 90 mg Valsartan (Diovan) 80 mg PO DAILY [facility] Last Admin: 08/29/17 09:07 Dose: 80 mg - Constitutional Appears: Non-toxic, No Acute Distress - Eye Exam Eye Exam: EOMI, PERRL - ENT Exam ENT Exam: Mucous Membranes Moist - Respiratory Exam Respiratory Exam: Clear to Ausculation Bilateral, NORMAL BREATHING PATTERN. absent: Decreased Breath Sounds, Rales, Respiratory Distress - Cardiovascular Exam Cardiovascular Exam: REGULAR RHYTHM, +S1, +S2. absent: Gallop - GI/Abdominal Exam GI & Abdominal Exam: Soft, Normal Bowel Sounds. absent: Guarding, Rebound - Extremities Exam Extremities Exam: absent: Calf Tenderness, Pedal Edema Additional comments: Amputation status - Neurological Exam Neurological Exam: Alert, Awake, Oriented x3 - Psychiatric Exam Psychiatric exam: Normal Affect, Normal Mood - Skin Skin Exam: Normal Color, Warm Assessment and Plan - Assessment and Plan (Free Text) Assessment: Unsteady gait amputations status s/p Gastric bypass Sx C/W PT Pain control DC plan C/W liquid diet until tomorrow(2 weeks post op) <Kerwin Neri - Last Filed: 09/04/17 05:56> Objective - Vital Signs/Intake and Output Vital Signs (last 24 hours): Temp Pulse Resp BP Pulse Ox 97.5 F L 68 20 111/52 L 98 09/02/17 08:23 09/02/17 08:25 09/02/17 08:23 09/02/17 08:25 09/02/17 08:23 Assessment and Plan (1) Unsteady gait Status: Acute (2) Diabetes mellitus type 2 in obese Status: Acute (3) Gait difficulty Status: Acute (4) Morbid obesity Status: Acute (5) Recurrent falls Status: Acute (6) Status post gastric bypass for obesity Status: Acute - Assessment and Plan (Free Text) Plan: I was present during evaluation and discussed with Dr Kd gonsalves plans of care and treatment. Kerwin Neri M.D.
[2017-08-30] MEDS: [UNRECOGNIZED DRUG - OTHER] PO SCH (08:25)
[2017-08-30] MEDS: Metoprolol Succinate 100 mg XL Tab PO SCH ×2 (08:26→16:35)
[2017-08-30] MEDS: Oxycodone/Acetaminophen 5/325 mg Tab PO PRN ×2 (10:47→21:38)
--- NOTE | 2017-08-30 12:43 | CP.PCM.PN ---
<Edmund Yi - Last Filed: 08/30/17 12:41> Subjective - Date & Time of Evaluation Date of Evaluation: 08/30/17 Time of Evaluation: 10:45 - Subjective Subjective: Stable. Seem on PT sessions doing better. Has no new complains. Denies LE pain, CP, SOB. No acute events overnight. Objective - Vital Signs/Intake and Output Vital Signs (last 24 hours): Temp Pulse Resp BP Pulse Ox 97.3 F L 67 20 142/65 99 08/30/17 08:11 08/30/17 08:26 08/30/17 08:11 08/30/17 08:26 08/30/17 08:11 - Medications Medications: Current Medications Acetaminophen (Tylenol 325mg Tab) 650 mg PO Q6 PRN PRN Reason: Pain, Mild (1-3) Aspirin (Ecotrin) 81 mg PO DAILY [facility] Last Admin: 08/30/17 08:25 Dose: 81 mg Atorvastatin Calcium (Lipitor) 40 mg PO DAILY@2100 [facility] Last Admin: 08/29/17 20:54 Dose: 40 mg Docusate Sodium (Colace) 100 mg PO BID [facility] Last Admin: 08/30/17 08:25 Dose: Not Given Home Med (Patient's Own Medication) 1 unit PO DAILY [facility] Last Admin: 08/30/17 08:25 Dose: 1 unit Metoprolol Succinate (Toprol Xl) 100 mg PO BID [facility] Last Admin: 08/30/17 08:26 Dose: 100 mg Ondansetron HCl (Zofran Inj) 4 mg IVP Q4 PRN PRN Reason: Nausea/Vomiting Last Admin: 08/25/17 17:41 Dose: 4 mg Ondansetron HCl (Zofran Tab) 4 mg PO Q4 PRN PRN Reason: Nausea/Vomiting Last Admin: 08/28/17 16:37 Dose: 4 mg Oxycodone/Acetaminophen (Percocet 5/325 Mg Tab) 1 tab PO Q6 PRN PRN Reason: Pain, moderate (4-7) Stop: 08/30/17 17:34 Last Admin: 08/30/17 10:47 Dose: 1 tab Pregabalin (Lyrica) 100 mg PO Q12 [facility] Last Admin: 08/30/17 08:25 Dose: 100 mg Simethicone (Mylicon Liq) 40 mg PO QID PRN PRN Reason: Flatulence Ticagrelor (Brilinta) 90 mg PO BID [facility] Last Admin: 08/30/17 08:25 Dose: 90 mg Valsartan (Diovan) 80 mg PO DAILY [facility] Last Admin: 08/30/17 08:26 Dose: 80 mg - Constitutional Appears: Non-toxic, No Acute Distress - Eye Exam Eye Exam: EOMI, PERRL - ENT Exam ENT Exam: Mucous Membranes Moist - Respiratory Exam Respiratory Exam: Clear to Ausculation Bilateral, NORMAL BREATHING PATTERN. absent: Decreased Breath Sounds, Prolonged Expiratory Phase, Respiratory Distress - Cardiovascular Exam Cardiovascular Exam: REGULAR RHYTHM, +S1, +S2. absent: Gallop - GI/Abdominal Exam GI & Abdominal Exam: Soft, Normal Bowel Sounds. absent: Tenderness - Extremities Exam Extremities Exam: absent: Normal Inspection (BKA L/leg) - Neurological Exam Neurological Exam: Alert, Awake, Oriented x3 Assessment and Plan - Assessment and Plan (Free Text) Assessment: C/W PT C/W Current plan Start soft diet today(2 weeks post op) Will order Arterial doppler of R/LE Anticipated DC this weekend <Kerwin Neri - Last Filed: 09/04/17 05:57> Objective - Vital Signs/Intake and Output Vital Signs (last 24 hours): Temp Pulse Resp BP Pulse Ox 97.5 F L 68 20 111/52 L 98 09/02/17 08:23 09/02/17 08:25 09/02/17 08:23 09/02/17 08:25 09/02/17 08:23 Assessment and Plan (1) Unsteady gait Status: Acute (2) Diabetes mellitus type 2 in obese Status: Acute (3) Gait difficulty Status: Acute (4) Morbid obesity Status: Acute (5) Recurrent falls Status: Acute (6) Status post gastric bypass for obesity Status: Acute - Assessment and Plan (Free Text) Plan: I was present during evaluation and discussed with Dr Kd gonsalves plans of care and treatment. Kerwin Neri M.D.
[2017-08-31] MEDS: Metoprolol Succinate 100 mg XL Tab PO SCH ×2 (08:17→16:47)
[2017-08-31] MEDS: [UNRECOGNIZED DRUG - OTHER] PO SCH (09:00)
--- NOTE | 2017-08-31 11:02 | CP.PCM.PN ---
<Edmund Yi - Last Filed: 08/31/17 12:41> Subjective - Date & Time of Evaluation Date of Evaluation: 08/31/17 Time of Evaluation: 10:40 - Subjective Subjective: Stable. Seem on PT sessions doing better. Has no new complains. Denies LE pain, CP, SOB. No acute events overnight. C/o worsening R/shoulder pain. Denies recent falls in the hosp tingling or numbness in R/UE Objective - Vital Signs/Intake and Output Vital Signs (last 24 hours): Temp Pulse Resp BP Pulse Ox 97.3 F L 64 20 116/52 L 97 08/31/17 08:33 08/31/17 08:33 08/31/17 08:33 08/31/17 08:33 08/31/17 08:33 - Medications Medications: Current Medications Acetaminophen (Tylenol 325mg Tab) 650 mg PO Q6 PRN PRN Reason: Pain, Mild (1-3) Aspirin (Ecotrin) 81 mg PO DAILY [facility] Last Admin: 08/31/17 08:14 Dose: 81 mg Atorvastatin Calcium (Lipitor) 40 mg PO DAILY@2100 [facility] Last Admin: 08/30/17 21:18 Dose: 40 mg Docusate Sodium (Colace) 100 mg PO BID [facility] Last Admin: 08/31/17 08:13 Dose: Not Given Home Med (Patient's Own Medication) 1 unit PO DAILY [facility] Last Admin: 08/30/17 08:25 Dose: 1 unit Metoprolol Succinate (Toprol Xl) 100 mg PO BID [facility] Last Admin: 08/31/17 08:17 Dose: Not Given Ondansetron HCl (Zofran Inj) 4 mg IVP Q4 PRN PRN Reason: Nausea/Vomiting Last Admin: 08/25/17 17:41 Dose: 4 mg Ondansetron HCl (Zofran Tab) 4 mg PO Q4 PRN PRN Reason: Nausea/Vomiting Last Admin: 08/31/17 07:58 Dose: 4 mg Oxycodone/Acetaminophen (Percocet 5/325 Mg Tab) 1 tab PO Q6 PRN PRN Reason: Pain, severe (8-10) Stop: 09/02/17 21:22 Last Admin: 08/30/17 21:38 Dose: 1 tab Pregabalin (Lyrica) 100 mg PO Q12 [facility] Last Admin: 08/31/17 08:16 Dose: 100 mg Simethicone (Mylicon Liq) 40 mg PO QID PRN PRN Reason: Flatulence Ticagrelor (Brilinta) 90 mg PO BID [facility] Last Admin: 08/31/17 08:13 Dose: 90 mg Valsartan (Diovan) 80 mg PO DAILY [facility] Last Admin: 08/31/17 08:16 Dose: Not Given - Constitutional Appears: Non-toxic, No Acute Distress - Eye Exam Eye Exam: EOMI, PERRL - ENT Exam ENT Exam: Mucous Membranes Moist - Respiratory Exam Respiratory Exam: Clear to Ausculation Bilateral, NORMAL BREATHING PATTERN. absent: Rales - Cardiovascular Exam Cardiovascular Exam: REGULAR RHYTHM, +S1, +S2. absent: Gallop - GI/Abdominal Exam GI & Abdominal Exam: Soft, Tenderness (Mild, diffuse), Normal Bowel Sounds - Extremities Exam Extremities Exam: absent: Calf Tenderness, Normal Inspection (BKA) - Neurological Exam Neurological Exam: Alert, Awake, Oriented x3 - Psychiatric Exam Psychiatric exam: Normal Affect, Normal Mood - Skin Skin Exam: Normal Color, Warm Assessment and Plan - Assessment and Plan (Free Text) Assessment: Unsteady gait improved Doing well on pT c/o new onset R/shoulder pain. Poss due to PT exercises? will start Motrin q8h Duplex arterial of LE done Yesterday, pending report Anticipated DC 09/02/17 <Kerwin Neri - Last Filed: 09/04/17 05:58> Objective - Vital Signs/Intake and Output Vital Signs (last 24 hours): Temp Pulse Resp BP Pulse Ox 97.5 F L 68 20 111/52 L 98 09/02/17 08:23 09/02/17 08:25 09/02/17 08:23 09/02/17 08:25 09/02/17 08:23 Assessment and Plan (1) Unsteady gait Status: Acute (2) Diabetes mellitus type 2 in obese Status: Acute (3) Gait difficulty Status: Acute (4) Morbid obesity Status: Acute (5) Recurrent falls Status: Acute (6) Status post gastric bypass for obesity Status: Acute - Assessment and Plan (Free Text) Plan: I was present during evaluation and discussed with Dr Yi re plans of care and treatment. Kerwin Neri M.D.
[2017-08-31] MEDS: Pantoprazole 40 mg EC Tab PO SCH (12:36)
[2017-08-31] MEDS: Oxycodone/Acetaminophen 5/325 mg Tab PO PRN (21:35)
[2017-09-01] MEDS: [UNRECOGNIZED DRUG - OTHER] PO SCH (08:56)
[2017-09-01] MEDS: Metoprolol Succinate 100 mg XL Tab PO SCH ×2 (08:57→16:43)
[2017-09-01] MEDS: Pantoprazole 40 mg EC Tab PO SCH (08:57)
[2017-09-01 20:03] VITALS: PULSE 68
[2017-09-01] MEDS: Oxycodone/Acetaminophen 5/325 mg Tab PO PRN (22:52)
[2017-09-02 08:24] VITALS: TEMP 97.5; O2SAT 98
[2017-09-02] MEDS: Metoprolol Succinate 100 mg XL Tab PO SCH (08:25)
[2017-09-02] MEDS: [UNRECOGNIZED DRUG - OTHER] PO SCH (08:25)
[2017-09-02] MEDS: Pantoprazole 40 mg EC Tab PO SCH (08:25)
[2017-09-02 08:29] VITALS: BP 111/52
--- NOTE | 2017-09-02 22:55 | CP.PCM.PN ---
Subjective - Date & Time of Evaluation Date of Evaluation: 09/01/17 Time of Evaluation: 10:30 - Subjective Subjective: Patient continues to do well Still with slight ooze on wound site Doing well with PT Has less abd pain. Objective - Vital Signs/Intake and Output Vital Signs (last 24 hours): Temp Pulse Resp BP Pulse Ox 97.5 F L 68 20 111/52 L 98 09/02/17 08:23 09/02/17 08:25 09/02/17 08:23 09/02/17 08:25 09/02/17 08:23 - Head Exam Head Exam: NORMAL INSPECTION - Eye Exam Eye Exam: Normal appearance - Respiratory Exam Respiratory Exam: NORMAL BREATHING PATTERN - Cardiovascular Exam Cardiovascular Exam: REGULAR RHYTHM - GI/Abdominal Exam GI & Abdominal Exam: Normal Bowel Sounds - Neurological Exam Neurological Exam: CN II-XII Intact, Oriented x3 - Psychiatric Exam Psychiatric exam: Normal Mood Assessment and Plan (1) Unsteady gait Status: Acute (2) Diabetes mellitus type 2 in obese Status: Acute (3) Gait difficulty Status: Acute (4) Morbid obesity Status: Acute (5) Recurrent falls Status: Acute (6) Status post gastric bypass for obesity Status: Acute - Assessment and Plan (Free Text) Plan: Cont meds Cont tx Cont PT pain meds wound care
--- NOTE | 2017-09-02 23:10 | CP.PCM.DIS ---
Provider - Provider Date of Admission: 08/24/17 16:23 Attending physician: Kerwin Neri MD Hospital Course - Lab Results Lab Results: Most Recent Lab Values POC Glucose (mg/dL) 183 mg/dL (65-110) H 09/02/17 11:26 - Hospital Course Hospital Course: This is a 56 y/0 female admitted for further PT and rehab. She was discharged from medical floor for frequent falls and persistent abd pain after a gastric sleeve procedure. She was started on PT. At first the prosthesis was not well fitted dueto the weight gain after a prolonged immobility. Wound care was maintained. She complained of recurrent epigastric pains which responded well to Protonix. She did fairly well with Phys therapy and was discharged home in stable condition. She was advised to follow up in 1 week. Discharge Plan - Follow Up Plan Condition: GOOD Disposition: HOME/ ROUTINE Instructions: Vertical Sleeve Gastrectomy, Laparoscopic Surgery, Syncope ( Fainting) (DC), Preventing Falls Referrals: Kerwin Neri MD [Family Provider] -
== END 2017-09-02 15:20 | disposition home or self-care (01) | DRG 949 ==
LOC: H.TCU 16:23
PROVIDERS: ADMIT Family Medicine; ATTEND Family Medicine
PROC: F07Z9FZ Gait Training/Functional Ambulation Treatment using Assistive, Adaptive, Supportive or Protective Equipment (ICD-10-PCS; principal; 2017-08-24)
PROC: F08Z4FZ Home Management Treatment using Assistive, Adaptive, Supportive or Protective Equipment (ICD-10-PCS; 2017-08-24)
PROC: F07M6FZ Therapeutic Exercise Treatment of Musculoskeletal System - Whole Body using Assistive, Adaptive, Supportive or Protective Equipment (ICD-10-PCS; 2017-08-25)
DX: Z48.815 Encounter for surgical aftercare following surgery on the digestive system (principal); Z68.43 Body mass index [BMI] 50.0-59.9, adult; R26.81 Unsteadiness on feet; E11.9 Type 2 diabetes mellitus without complications; Z98.84 Bariatric surgery status; M25.511 Pain in right shoulder; I10 Essential (primary) hypertension; R29.6 Repeated falls; E66.9 Obesity, unspecified; Z89.512 Acquired absence of left leg below knee; Z89.411 Acquired absence of right great toe